=== PATIENT | female | born 1935 | race Caucasian/White ===

== ENCOUNTER 2019-07-27 18:19 | Emergency (ER) | payer MEDICARE, SELFPAY ==
[2019-07-27 18:26] VITALS: BP 172/93; PULSE 102; RESP 16; TEMP 37.2; O2SAT 97
--- NOTE | 2019-07-27 18:47 | ED.FEMALEGU ---
HPI - Female Genitourinary General Chief complaint: Urogenital-Female Stated complaint: urinary pain Time Seen by Provider: 07/27/19 18:48 Source: patient and RN notes reviewed Mode of arrival: ambulatory Limitations: no limitations History of Present Illness HPI Narrative: 84-year-old female presents with concern for 4-day history of dysuria, urinary frequency. Also reports epigastric pain that is worse at night. Upon entry to the exam room, patient is bent over the exam table for pain relief. She reports pain is sometimes eases when she belches. Reports she had a cholecystectomy almost 2 weeks ago, and the pain has been persistent since that time, has been worsening. She reports taking hydrocodone as prescribed by her surgeon with no relief. She is on aware of when her last bowel movement was. She denies decreased appetite. MD elicited complaint: UTI Related Data Home Medications Medication Instructions Recorded Confirmed carisoprodol 350 mg PO TID 07/27/19 07/27/19 hydrocodone-acetaminophen 1 tablet PO Q6H PRN 07/27/19 07/27/19 lisinopril 10 mg PO DAILY 07/27/19 07/27/19 nitrofurantoin macrocrystal 100 mg PO Q12H 07/27/19 07/27/19 [Macrodantin] Allergies Allergy/AdvReac Type Severity Reaction Status Date / Time anesthesia AdvReac Mild Nausea and Uncoded 07/27/19 18:40 Vomiting Review of Systems Review of Systems: Narrative: CONSTITUTIONAL: Reports malaise. Denies chills, sweats, or fever. CARDIOVASCULAR: Denies chest pain, palpitations, or edema. RESPIRATORY: Denies cough or dyspnea. GASTROINTESTINAL: D reports epigastric pain. Denies nausea, vomiting, diarrhea, bloody, or mucous stools. GENITOURINARY: Reports dysuria, urinary frequency. Denies hematuria. MUSCULOSKELETAL: Reports right upper and lower back pain All systems reviewed & are unremarkable except as noted in HPI and below PMFSH Comments At time of signature, agree with nursing past medical, surgical, social and family history. There is no relevant family history pertinent to the presenting complaint Exam Narrative: Exam Narrative: GENERAL: Well-appearing, well-nourished, and in no acute distress. HEAD: Normocephalic. EYES: PERRLA, conjunctivae clear. NECK: Supple. No lymphadenopathy CHEST: Clear to auscultation. No respiratory distress. HEART: Regular rate and rhythm. No murmur heard. Normal peripheral pulses. ABDOMEN: Soft, generalized tenderness upon palpation, nondistended, normal active bowel sounds, no palpable or pulsatile masses, no guarding. No CVA tenderness SKIN: Warm, dry, no rash. NEURO: Alert and oriented x3. PSYCH: Normal mood and affect Course Course Emergency Course: Patient is aware of, understands and agrees to be seen in the emergency department. Patient agrees to proceed directly to the emergency department. Portions of this record may have been created with voice recognition software Vital Signs Vital signs: Vital Signs Temperature 98.9 F 07/27/19 18:26 Pulse Rate 102 H 07/27/19 18:26 Respiratory Rate 16 07/27/19 18:26 Blood Pressure 172/93 H 07/27/19 18:26 Pulse Oximetry 97 07/27/19 18:26 Temperature 98.9 F 07/27/19 18:26 Pulse Rate 102 H 07/27/19 18:26 Respiratory Rate 16 07/27/19 18:26 Blood Pressure 172/93 H 07/27/19 18:26 Pulse Oximetry 97 07/27/19 18:26 Reviewed. Patient has history of hypertension Transfer Transfered to: [facility] Transportation: Other (Private vehicle) Transfer rationale: Patient stable for transfer via private vehicle Accepting physician: Dr. Flores MDM - Female Genitourinary MDM Narrative Medical decision making narrative: Patient's exam warrants further evaluation in the emergency department. Patient is nontoxic appearing, stable for transfer to private vehicle. Patient agrees to proceed directly to the emergency room. Critical Care Time Critical Care Time Critical Care Time: No Discharge Plan Discharge Clinical Impress
== END 2019-07-27 19:20 | disposition short-term general hospital (02) ==
PROVIDERS: Emergency Provider Nurse Practitioner; PCP Family Medicine
DX: R10.13 Epigastric pain (principal); E78.00 Pure hypercholesterolemia, unspecified; I10 Essential (primary) hypertension; Z87.440 Personal history of urinary (tract) infections; Z96.653 Presence of artificial knee joint, bilateral
CPT/HCPCS: 81003; 87086; 99213; G0463

== ENCOUNTER 2019-09-22 18:14 | Emergency (ER) | payer MEDICARE, SELFPAY ==
[2019-09-22 18:20] VITALS: BP 120/72; PULSE 119; RESP 18; TEMP 37.1; O2SAT 97
--- NOTE | 2019-09-22 18:24 | ED.SKABFB ---
HPI - Skin/Abscess/Foreign Bdy General Chief complaint: Skin/Abscess/Foreign Body Stated complaint: welts and itchy Time Seen by Provider: 09/22/19 18:24 Source: patient and RN notes reviewed History of Present Illness HPI narrative: Patient is an 84-year-old female who presents the urgent care with complaints of itchy welts all over her body. Patient states that started this morning and seems to have gotten worse, especially to the upper legs. Patient denies any change in lotions, detergents, creams, medications. Patient and daughter both state that the patient has been severely anxious and stressed recently and believes the hives are related. Patient has not used anything [id number] for the itch or hives. Denies of any shortness of breath or difficulty breathing. No other acute complaints. No acute distress noted. Patient read the plan of care. Related Data Home Medications Medication Instructions Recorded Confirmed carisoprodol 350 mg PO TID 07/27/19 09/22/19 hydrocodone-acetaminophen 1 tablet PO Q6H PRN 07/27/19 09/22/19 lisinopril 10 mg PO DAILY 07/27/19 09/22/19 donepezil 10 mg PO HS 09/22/19 09/22/19 pravastatin 40 mg PO DAILY 09/22/19 09/22/19 Allergies Allergy/AdvReac Type Severity Reaction Status Date / Time anesthesia AdvReac Mild Nausea and Uncoded 09/22/19 18:36 Vomiting Review of Systems Review of Systems: Narrative: CONSTITUTIONAL: Denies fever, chills, or sweats. EYES: Denies visual changes, redness, or discharge. ENT: Denies rhinorrhea, congestion, sore throat, or otalgia. CARDIOVASCULAR: Denies chest pain, palpitations, or edema. RESPIRATORY: Denies cough or dyspnea. GASTROINTESTINAL: Denies abdominal pain, nausea, vomiting, or diarrhea. GENITOURINARY: Denies dysuria or hematuria. SKIN: Reports of itchy red hives all over the body MUSCULOSKELETAL: Denies back pain, joint pain, or myalgia. NEUROLOGIC: Denies headache, numbness, or weakness. PSYCHIATRIC: Reports of anxiety and stress All other systems reviewed are negative, except as documented in HPI. PMFSH Comments At the time of my signature, I reviewed and agree with the nursing past medical, surgical, social, and family history. There is no relevant family history pertinent to the patient complaint. Exam Narrative: Exam Narrative: GENERAL: This is a well-nourished, well-developed patient, in no apparent distress. HEAD: normocephalic, atraumatic. EYES: PERRL. Sclera clear/white. Vision is grossly intact. EARS: External ears normal NOSE: External nose normal with no obvious nasal discharge, nares without redness, no rhinorrhea. THROAT: Mucous membranes moist NECK: Neck supple CARDIOVASCULAR: Regular rate and rhythm RESPIRATORY: Clear to auscultation. Breath sounds equal bilaterally. No wheezes, rales, or rhonchi. SKIN: Diffuse raised, itchy, edematous urticaria noted to the upper anterior and posterior thighs, buttocks, upper extremities, torso and scalp NEURO: awake, alert, and oriented to person, place and time. There were no obvious focal neurologic abnormalities. EXTREMITIES: No clubbing, cyanosis, or edema. Course Vital Signs Vital signs: Vital Signs Temperature 98.7 F 09/22/19 18:20 Pulse Rate 119 H 09/22/19 18:20 Respiratory Rate 18 09/22/19 18:20 Blood Pressure 120/72 09/22/19 18:20 Pulse Oximetry 97 09/22/19 18:20 Temperature 98.7 F 09/22/19 18:20 Pulse Rate 119 H 09/22/19 18:20 Respiratory Rate 18 09/22/19 18:20 Blood Pressure 120/72 09/22/19 18:20 Pulse Oximetry 97 09/22/19 18:20 Reviewed MDM - Skin/Abscess/Foreign Bdy MDM Narrative Medical decision making narrative: Advised the patient to complete steroid regimen as prescribed. Make sure to eat and drink with the medication. Use steroid cream as directed, avoiding the groin, around the eyes and underarms. Apply sparingly, a little bit goes a long way. May use cool compress as needed for comfort. May use Benadryl as needed f
== END 2019-09-22 18:50 | disposition home or self-care (01) ==
PROVIDERS: Emergency Provider Nurse Practitioner Family
DX: L50.9 Urticaria, unspecified (principal); I10 Essential (primary) hypertension; E78.00 Pure hypercholesterolemia, unspecified; Z96.653 Presence of artificial knee joint, bilateral
CPT/HCPCS: 99213; G0463

== ENCOUNTER 2021-11-19 18:25 | Emergency (ER) | payer MEDICARE, SELFPAY ==
--- NOTE | 2021-11-19 18:31 | ED.FEMALEGU ---
HPI - Female Genitourinary General Chief complaint: Urogenital-Female Stated complaint: Urinary Problem Time Seen by Provider: 11/19/21 18:32 Source: patient, family and RN notes reviewed History of Present Illness HPI Narrative: Patient is an 86-year-old female who presents the urgent care with her daughter. Daughter states that she has been complaining of some fatigue and weakness over the last couple days and noted that she had some urinary frequency and decreased urinary output. Patient does have a history of UTIs but is not believe that she has been treated in the last 6 months. Patient denies of any recent fevers, nausea, vomiting, abdominal pain or low back pain. Denies of any notable blood in the urine. No other acute complaints. No acute distress noted. Patient and daughter aware of the plan of care. Some parts of this dictation were generated by voice recognition software and may contain typographical and/or grammatical inaccuracies. Related Data Home Medications Medication Instructions Recorded Confirmed lisinopril 10 mg tablet 10 mg PO DAILY 07/27/19 11/19/21 donepezil 10 mg tablet 5 mg PO HS 09/22/19 11/19/21 pravastatin 40 mg tablet 40 mg PO DAILY 09/22/19 11/19/21 alendronate 70 mg tablet 70 mg PO WEEKLY 11/19/21 11/19/21 Allergies Allergy/AdvReac Type Severity Reaction Status Date / Time No Known Allergies Allergy Verified 11/19/21 18:46 Review of Systems Review of Systems: CONSTITUTIONAL: Denies fever, chills, or sweats. Reports of fatigue EYES: Denies visual changes, redness, or discharge. ENT: Denies rhinorrhea, congestion, sore throat, or otalgia. CARDIOVASCULAR: Denies chest pain, palpitations, or edema. RESPIRATORY: Denies cough or dyspnea. GASTROINTESTINAL: Denies abdominal pain, nausea, vomiting, or diarrhea. GENITOURINARY: Reports of urinary frequency, decreased output and pain with urination SKIN: Denies rash or itching. MUSCULOSKELETAL: Denies back pain, joint pain, or myalgia. NEUROLOGIC: Denies headache, numbness, or weakness. All other systems reviewed are negative, except as documented in HPI. PMFSH Comments At the time of my signature, I reviewed and agree with the nursing past medical, surgical, social, and family history. There is no relevant family history pertinent to the patient complaint. Exam Narrative: GENERAL: This is a well-nourished, well-developed patient, in no apparent distress. HEAD: normocephalic, atraumatic. EYES: PERRL. Sclera clear/white. Vision is grossly intact. EARS: External ears normal NOSE: External nose normal with no obvious nasal discharge, nares without redness, no rhinorrhea. THROAT: Mucous membranes moist NECK: Neck supple CARDIOVASCULAR: Regular rate and rhythm without murmurs, gallops, or rubs. RESPIRATORY: Throughout. Breath sounds equal bilaterally. No wheezes, rales, or rhonchi. GASTROINTESTINAL: Abdomen soft, non-tender, nondistended. Bowel sounds are active. SKIN: warm, intact with no suspicious lesions or rash, good texture and turgor. NEURO: awake, alert, and oriented to person, place and time. There were no obvious focal neurologic abnormalities. EXTREMITIES: No clubbing, cyanosis, or edema. BACK: Negative bilateral CVA tenderness Course Course Level of Care: Express Care Visit Vital Signs Vital signs: Vital Signs Temperature 97.8 F 11/19/21 18:44 Pulse Rate 90 11/19/21 18:44 Respiratory Rate 16 11/19/21 18:44 Blood Pressure 167/99 H 11/19/21 18:44 Pulse Oximetry 97 11/19/21 18:44 Oxygen Delivery Room Air 11/19/21 18:44 Temperature 97.8 F 11/19/21 18:48 Pulse Rate 90 11/19/21 18:48 Respiratory Rate 16 11/19/21 18:48 Blood Pressure 167/99 H 11/19/21 18:48 Pulse Oximetry 97 11/19/21 18:48 Oxygen Delivery Room Air 11/19/21 18:48 Reviewed-patient is informed that they may have pre-hypertension or hypertension based on a blood pressure reading in the department. I recommend the patient
[2021-11-19 18:44] VITALS: BP 167/99; PULSE 90; RESP 16; TEMP 36.6; O2SAT 97
[2021-11-19 18:48] VITALS: BP 167/99; PULSE 90; RESP 16; TEMP 36.6; O2SAT 97
== END 2021-11-19 19:04 | disposition home or self-care (01) ==
PROVIDERS: Emergency Provider Nurse Practitioner Family; PCP Internal Medicine Infectious Disease
DX: N39.0 Urinary tract infection, site not specified (principal); E78.00 Pure hypercholesterolemia, unspecified; I10 Essential (primary) hypertension; Z96.653 Presence of artificial knee joint, bilateral
CPT/HCPCS: 81003; 87077; 87086; 87186; 99213; G0463